=== PATIENT | female | born 2000 | race Caucasian/White ===

== ENCOUNTER 2019-10-16 12:27 | Emergency (ER) | payer SELFPAY ==
[2019-10-16 12:49] VITALS: BP 129/78
[2019-10-16] MEDS ORDERED: KETOROLAC TROMETHAMINE INJ/PF 30 MG/1 ML SDV IM ONE ×2 (13:56→17:00)
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
== END 2019-10-16 16:58 | disposition home or self-care (01) ==
LOC: ER 12:27
DX: J34.89 Other specified disorders of nose and nasal sinuses (principal); R51 Headache; M54.2 Cervicalgia; Y04.8XXA Assault by other bodily force, initial encounter; Y04.2XXA Assault by strike against or bumped into by another person, initial encounter
CPT/HCPCS: 99284; 96372; 72050; 70150; 70160; J1885